=== PATIENT | male | born 1990 | race Caucasian/White ===

== ENCOUNTER 2021-08-19 22:20 | Emergency (ER) ==
[~2021-08-19] VITALS: Ht 172.7 cm; Wt 69.2 kg
--- NOTE | 2021-08-20 06:26 | ECGEPIP ---
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
== END 2021-08-20 03:22 | disposition left against medical advice (07) ==
LOC: M ED 22:20
DX: Z53.29 Procedure and treatment not carried out because of patient's decision for other reasons (principal)

== ENCOUNTER 2022-08-28 18:01 | Emergency (ER) | payer SELFPAY ==
[~2022-08-28] VITALS: Ht 172.7 cm; Wt 65.1 kg
[2022-08-28 18:01] VITALS: BP 142/90
== END 2022-08-28 22:57 | disposition left against medical advice (07) ==
LOC: M ED 18:01
DX: Z53.21 Procedure and treatment not carried out due to patient leaving prior to being seen by health care provider (principal)